=== PATIENT | male | born 1995 | race Caucasian/White ===

== ENCOUNTER 2017-04-02 01:24 | Emergency (ER) | payer OTHER, BC ==
[~2017-04-02] VITALS: Ht 193 cm; Wt 147.7 kg
[~2017-04-02 01:24] MED LIST: DESYREL100 MG PO; LORTAB 5-325 M1 EACH PO; MOTRIN600 MG PO; PRAZOSIN HCL1 MG PO
[2017-04-02] MEDS ORDERED: ZOFRAN4 MG PO (02:41)
[2017-04-02] MEDS ORDERED: NORCO 5/3251 TABLET PO (02:41)
[2017-04-02 02:52] VITALS: BP 153/101
== END 2017-04-02 02:53 | disposition home or self-care (01) ==
LOC: EME 01:24 → EXP 01:24
DX: S09.90XA Unspecified injury of head, initial encounter (principal); F07.81 Postconcussional syndrome; W01.190A Fall on same level from slipping, tripping and stumbling with subsequent striking against furniture, initial encounter; Y92.000 Kitchen of unspecified non-institutional (private) residence as the place of occurrence of the external cause
CPT/HCPCS: 70450; 99281; 99283